=== PATIENT | female | born 1975 | race Two or more races ===

== ENCOUNTER 2022-12-10 06:15 | Day surgery (SDC) | payer OTHER ==
[~2022-12-10] VITALS: Ht 160 cm; Wt 68.0 kg
[~2022-12-10 06:15] MED LIST: DIOVAN160 M1 PO; NEXIUM 24HR20 M1 PO
== END 2022-12-10 11:25 | disposition home or self-care (01) ==
LOC: CIR.AMB 06:15
PROVIDERS: ATTEND Orthopaedic Surgery Hand Surgery
DX: G56.02 Carpal tunnel syndrome, left upper limb (principal); Z20.822 Contact with and (suspected) exposure to COVID-19; E11.9 Type 2 diabetes mellitus without complications; E78.00 Pure hypercholesterolemia, unspecified; I10 Essential (primary) hypertension